=== PATIENT | female | born 1940 | race African-American/Black ===

== ENCOUNTER 2016-06-20 11:18 | Inpatient (IN) | payer MEDICARE, BC ==
[2016-06-18 10:23] LABS: HEMATOCRIT 38.6 % (36.0-48.0); HEMOGLOBIN 12.1 g/dL (12.0-16.0)
[2016-06-18 10:35] LABS: CALCIUM, SERUM 8.8 MG/DL (8.5-10.4); CHLORIDE, SERUM 101 MMOL/L (96-112); CO2 (CARBON DIOXIDE) 32 MMOL/L (24-34); CREATININE 0.76 MG/DL (0.55-1.02); GFR AFRICAN AMERICAN 88 ML/MIN (>=60); GFR NON AFRICAN AMERICAN 76 ML/MIN (>=60); GLUCOSE, SERUM 88 MG/DL (60-99); POTASSIUM, SERUM 3.5 MMOL/L (3.5-5.3); SODIUM, SERUM 141 MMOL/L (135-148)
[2016-06-18 10:36] LABS: BUN (BLOOD UREA NITROGEN) 15 MG/DL (6-23)
--- NOTE | ~2016-06-20 | CN ---
Consultation Report [facility] [place] [address] [place]. [address] NAME: IRA VERA : 39 STATUS : ADM IN PAT#: [id number] AGE: 75 ADM/REG DATE : 06/20/16 MR#: [id number] REPORT SERV DATE: 06/22/16 DICTATED BY: WHITNEY SINGH DATE: 06/22/16 REPORT STATUS : Draft TRANSCRIBED BY: MODL DATE: 06/22/16 NEPHROLOGY CONSULTATION DATE OF CONSULTATION: 06/22/2016 REASON FOR CONSULTATION: Acute kidney injury. HISTORY OF PRESENT ILLNESS: Mrs. Vera is a pleasant 75-year-old female with past medical history of chronic degenerative disk disease with multiple back surgeries, hypertension, obstructive sleep apnea, and GERD, who presented as an elective admission for L2-L4 lumbar fusion with facetectomy. She underwent surgery on 06/20. She had preoperative labs done on the , which showed a BUN and creatinine 15 and 0.76. Next set of lab data available was 06/21 with BUN and creatinine of 34 and 3.84 with potassium of 3.1. Her urinalysis shows specific gravity 1.025 with 182 red blood cells, four white blood cells, and 100 mg/dL protein. Reviewing intraoperative record, she had a systolic blood pressure ranging 90 to 110 throughout surgery. She has had episodes of hypotension with blood pressure 87/50 on 06/20 and 88/34 on 06/21. She denies any prior history of renal disease, has not received any obvious nephrotoxins, but is noted to be on an JN inhibitor and diuretic therapy, which has been stopped. PAST MEDICAL HISTORY: 1. Peripheral neuropathy. 2. Hypertension. 3. Obstructive sleep apnea, not requiring CPAP. 4. Degenerative disk disease with multiple back surgeries. 5. GERD. PAST SURGICAL HISTORY: 1. Heart catheterization, 40 years ago. 2. Tonsillectomy and adenoidectomy as a child. 3. Multiple lower back surgeries, most recent with lumbar laminectomy in 2016. 4. Hysterectomy. 5. Foot surgeries, not otherwise specified. 6. Left ankle fusion. 7. Colonoscopy. 8. Laser surgery to the right eye. 9. Right patella removal. 10.Cholecystectomy. 11.Upper lid blepharoplasty, 2011. 12.Left wrist/hand ganglion cyst surgery x5. ALLERGIES: SPINACH AND SHELLFISH. SOCIAL HISTORY: She is , has three grown children, and a supportive . One son Consultation Report [address] [place]. [address] NAME: IRA VERA : 39 STATUS : ADM IN PAT#: [id number] AGE: 75 ADM/REG DATE : 06/20/16 MR#: [id number] REPORT SERV DATE: 06/22/16 DICTATED BY: WHITNEY SINGH DATE: 06/22/16 REPORT STATUS : Draft TRANSCRIBED BY: RONAK DATE: 06/22/16 has . No smoking, alcohol, or illicit drug use. FAMILY HISTORY: Significant for coronary artery disease and cancer. Her mother had hypertension and is from renal failure, and her father when she was [age] years old. HOME MEDICATIONS: 1. Amlodipine 10 daily. 2. Aspirin 81 daily. 3. Alphagan eyedrops, one drop twice a day in both eyes. 4. Celexa 20 daily. 5. Colace 100 p.r.n. constipation. 6. Ferrous sulfate 325 q.a.m. 7. Lasix 10 daily p.r.n. for swelling. 8. Neurontin 800 three times a day. 9. Hydrochlorothiazide 25 mg in the morning. 10.Hydrocodone 5/325 q.4 hours p.r.n. pain. 11.Lisinopril 10 daily. 12.Prilosec 40 daily. 13.Potassium chloride 10 mEq daily. 14.Zanaflex 4 mg t.i.d. REVIEW OF SYSTEMS: All systems reviewed and negative excluding those mentioned and highlighted in the history of present illness. PHYSICAL EXAMINATION: VITAL SIGNS: O2 saturation 96%, blood pressure 137/68, temperature 98.4, pulse 87, respiratory rate 22, oxygen saturation 98% on 2 L. GENERAL: This is a pleasant female, looks her stated age, resting comfortably, nontoxic, in no acute distress. HEENT: Normocephalic, atraumatic. Oropharynx clear. No exudate. NECK: Supple. No JVD or thyromegaly. No carotid bruits. Trachea midline. No stridor. CARDIOVASCULAR: Regular rate and rhythm. S1, S2 without rubs or gallops. Point of maximal impulse nondisplaced. RESPIRATORY: Clear to auscultation bilaterally to bases. No wheeze, rhonchi, tachypnea, or accessory muscles in use. GI: Abdomen is soft, nontender, nondistended. No hepatosplenomegaly appreciated. Bowel sounds positive over four quadrants. EXTREMITIES: No cyanosis, clubbing or edema. Distal pulses 2+ symmetrically intact. NEUROLOGIC: Cranial nerves 2 through 12 grossly intact. Motor sensory examinations within normal limits. LYMPH: No supraclavicular, cervical, inguinal, or axillary adenopathy. SKIN: No rash or breakdown. Normal turgor. Consultation Report [place] [id number] [facility] [place]. [address] NAME: IRA VERA : 39 STATUS : ADM IN [facility]#: [id number] AGE: 75 ADM/REG DATE : 06/20/16 MR#: [id number] REPORT SERV DATE: 06/22/16 DICTATED BY: WHITNEY SINGH DATE: 06/22/16 REPORT STATUS : Draft TRANSCRIBED BY: RONAK DATE: 06/22/16 LABS AND DIAGNOSTIC DATA: BNP 9.2. Sodium 131, potassium 3.5, chloride 95, bicarb 23, BUN 41, creatinine 4.08, glucose 119, calcium 7.4, magnesium 1.7, phosphorus 4.9. WBC 11.7, hemoglobin 9.1, hematocrit 28.4, platelets 196. ASSESSMENT: 1. Acute kidney injury post back surgery (L2-L4 lumbar fusion with facetectomy). Serum creatinine preceding surgery was 0.76 with brisk rise to 4.08 postoperatively on day #2. I suspect this is hypoperfusion mediated injury with evidence of relative hypotension in the setting of JN inhibitor and diuretic therapy causing acute tubular necrosis. She appears to be nonoliguric at this point. 2. History of hypertension. PLAN: 1. Check renal ultrasound and urinary electrolytes. 2. Bolus normal saline 500 mL and increase fluid rate for now. She presently has no signs of volume overload and I suspect it is prerenal. 3. Serial labs and hopefully we can avoid hemodialysis. There is no acute indication at this point. and patient were updated in detail. Thank you for this consultation. LETICIA/RONAK Whitney Singh M.D. / [id number] CC: Jayne Wilhelm II, M.D.
--- NOTE | ~2016-06-20 | DS ---
Discharge Summary [facility] [address] [place]. [address] NAME: IRA JIMENEZ : 39 STATUS : DIS IN PAT#: [id number] AGE: 75 ADM/REG DATE : 06/20/16 MR#: [id number] REPORT SERV DATE: 07/06/16 DICTATED BY: SUMI STOKES II DATE: 07/05/16 REPORT STATUS : Draft TRANSCRIBED BY: RONAK DATE: 07/05/16 Data Collection from hospitalization DISCHARGE DIAGNOSES: 1. Right lower extremity radiculopathy with remote and recent history of L4-S1 surgery. 2. Adjacent segment degeneration with now symptomatic stenosis at L2-L3 and L3-L4 above previous fusion. 3. Hypertension. 4. Anemia. 5. Cataract. 6. Depression. 7. Glaucoma. 8. Osteoarthritis. 9. Varicose veins of the lower extremities. 10.Obstructive sleep apnea. CONSULTATIONS: 1. Saige eZlaya NP. 2. Whitney Brown M.D. PROCEDURES PERFORMED: 1. L2-L3, L3-L4 facetectomy and laminectomy; posterolateral arthrodesis of L2-L3, L3-L4; posterior instrumentation of L2-L3, L3-L4 with left hardware removal of L4-L5; use of local autograft, allograft substitute, and bone morphogenic protein; use of microscope and stereotactic spinal imaging on 06/20/2016. 2. Renal ultrasound on 06/22/2016. PATHOLOGY: Lumbar spine removal and repair - orthopedic hardware (gross assessment), fragmented bone, cartilage and soft tissue. No evidence was seen of an infectious or neoplastic process. MEDICATIONS: Norvasc 10 mg daily, Alphagan one drop twice a day, Celexa 20 mg daily, docusate sodium 100 mg as needed, ferrous sulfate 325 mg every morning, Neurontin 800 mg three times a day, Prilosec 40 mg daily, DuoNeb 3 mL via inhaler every four hours while awake, Mylanta 30 mL as needed, Dulcolax 15 mg as needed, Valium 2 mg every four hours as needed, Eagan 10/325 one to two tablets every four hours as needed, milk of magnesia 30 mL twice a day as needed, Zanaflex 4 mg three times a day as needed, hydrochlorothiazide 25 mg every morning, K-Tab 10 mEq as needed, Zestril 10 mg daily, and Lasix 10 mg daily as needed. CONDITION AT DISCHARGE: Stable. DISPOSITION: The patient was discharged to [facility] on a regular diet with activities as instructed. HOSPITAL COURSE: This is a 75-year-old female who had complained of lumbar spine-related symptoms. The symptoms were located in the right lower back with radiation into the right abdomen. She reported having a pain level of 10 on a scale of 0-10. She has right lower extremity radiculopathy with remote and recent history of L4-S1 surgery. She has adjacent Discharge Summary [place] [address] [place]. [address] NAME: IRA JIMENEZ : 39 STATUS : DIS IN PAT#: [id number] AGE: 75 ADM/REG DATE : 06/20/16 MR#: [id number] REPORT SERV DATE: 07/06/16 DICTATED BY: SUMI STOKES II DATE: 07/05/16 REPORT STATUS : Draft TRANSCRIBED BY: RONAK DATE: 07/05/16 segment degeneration with now symptomatic stenosis at L2-3 and L3-4 above the previous fusion. Treatment options were discussed and it was elected to proceed with surgical intervention. She was admitted to the hospital at this time for further evaluation and treatment. Upon admission, she was taken to the operating room where she underwent the above-mentioned procedure. She tolerated this well, and there were no complications. On postop day #1, she was evaluated by Physical Therapy. She was resting well. She was seen by Saige Zelaya regarding renal failure. The patient has a previous history of type 2 diabetes, but she said she is not a diabetic even though it is in her history. Creatinine level was found to be 3.84. She was felt to have acute kidney injury on postop day #1. Her previous creatinine on 06/18/2016 was 0.76. She is on several medications for hypertension. Lisinopril, Lasix, hydrochlorothiazide, and KCl were discontinued. Normal saline was added for hydration. She was encouraged to also orally hydrate herself. Her blood pressure was controlled at the present time. She was going to remain on Norvasc daily. She does have obstructive sleep apnea, but does not use CPAP. The patient said she could not tolerate wearing a mass. She would be monitored on continuous O2 and we would titrate her O2 to keep saturations 92% or greater. She was going to remain on daily Prilosec as well as her daily dose of gabapentin. On 06/22/2016, she was seen by Dr. Whitney Brown regarding acute kidney injury. On review of her intraoperative records, she had a systolic blood pressure ranging 90 to 110 throughout her surgery. She did have episodes of hypotension with blood pressure 87/50 on 06/20/2016 and 88/34 on 06/21/2016. She denies any prior history of renal disease. She has not received any obvious nephrotoxins, but she is noted to be on JN inhibitor and diuretic therapy which had been stopped. Her serum creatinine prior to surgery was 0.76 with a brisk rise to 4.08 on postop day #2. It was suspected that this was hypoperfusion-mediated injury with evidence of relative hypotension in the setting of JN inhibitor and diuretic therapy causing acute tubular necrosis. She appeared to be nonoliguric at this point. Renal ultrasound would be checked as well as urinary electrolytes. Bolus of normal saline would be given and we increased the fluid rate for now. She presently has no signs of volume overload and it was suspected that this was prerenal. We were hopeful that we could avoid hemodialysis. There was no indication for this at this point. On 06/23/2016, she was more alert. Her pain was well controlled. Castillo catheter was in place. She did ambulate with assistance. The next day, she was able to void. LUKE drain remained in place. Her pain was controlled. Blood pressure was stable. Discharge planning was performed. On 06/25/2016, she continued to do well. Her leg pain had decreased. Discharge instructions were given. Due to her improved and stable condition, she was discharged to [facility] with the above-stated instructions. Information collected by: Anna Baxter I submit the above information as my discharge summary. TG/MODL Discharge Summary [facility] [address] [place]. [address] NAME: TONYKAILAIRA ANN RECIO : 39 STATUS : DIS IN [facility]#: [id number] AGE: 75 ADM/REG DATE : 06/20/16 MR#: [id number] REPORT SERV DATE: 07/06/16 DICTATED BY: SUMI STOKES II DATE: 07/05/16 REPORT STATUS : Draft TRANSCRIBED BY: RONAK DATE: 07/05/16 Suim Stokes II, M.D. / [id number] CC: Jayne Wilhelm II, M.D. Lindsay C Crawford, M.D.
--- NOTE | ~2016-06-20 | OP ---
Record Of Operation [facility] [address] [place]. [address] NAME: IRA JIMENEZ : 39 STATUS : ADM IN PAT#: [id number] AGE: 75 ADM/REG DATE : 06/20/16 MR#: [id number] REPORT SERV DATE: 06/25/16 DICTATED BY: SUMI STOKES II DATE: 06/23/16 REPORT STATUS : Draft TRANSCRIBED BY: MODL DATE: 06/23/16 DATE OF PROCEDURE: 06/20/2016 PREOPERATIVE DIAGNOSES: Right lower extremity radiculopathy with remote and recent history of L4 to S1 surgery. Adjacent segment degeneration, with now symptomatic stenosis, L2-3, L3 4 above her previous fusion. POSTOPERATIVE DIAGNOSES: Right lower extremity radiculopathy with remote and recent history of L4 to S1 surgery. Adjacent segment degeneration, with now symptomatic stenosis, L2-3, L3 4 above her previous fusion. PROCEDURE: 1. L2-3, L3-4 facetectomies and laminectomies. 2. Posterolateral arthrodesis, L2-3, L3-4. 3. Posterior instrumentation, L2-3, L3-4, with left hardware removal, L4-5. 4. Use of local autograft, allograft substitute, and bone morphogenic protein. 5. Use of the microscope and stereotactic spinal imaging. SURGEON: Sumi Stokes M.D. FLUIDS: 1200 mL LR. ESTIMATED BLOOD LOSS: 100 mL. DRAIN: One drain. COMPLICATIONS: None. PREOPERATIVE HISTORY: This is a friendly 75-year-old female, who was doing well following her most recent surgery. It decrease her left lower extremity radiculopathy greatly. Unfortunately, several months later she is now having severe complaints of pain radiating in the right buttock and leg. Imaging does show stenosis at L2-3 and L3-4. Which I unfortunately felt was likely her culprit now. She appeared to have recovered well from the surgery, but unfortunately these other levels, I did not anticipate bothering her especially not in this rapid of a fashion. I discussed with them that this was obviously suboptimal in terms of having to have an another surgery so quickly. I apologize that she was having to be in this much pain. Because of the severe pain she wished to have something done, which of course I totally understood and wanted to help her as quickly as possible and this as effectively as possible. I did not see anything that looked remarkable at the previously operated on levels. I discussed with her and her family the risks and benefits of surgery and she was eager to proceed. DESCRIPTION OF PROCEDURE: After informed consent was obtained, the patient was brought to the operating room at her request, and general anesthesia was achieved. She was placed in the prone position and the back was prepped and draped in a sterile fashion. At this point, we performed bilateral Andrew style approaches. The right side was then initially performed Record Of Operation [facility] [address] [facility] [place]. [address] NAME: IRA JIMENEZ : 39 STATUS : ADM IN PAT#: [id number] AGE: 75 ADM/REG DATE : 06/20/16 MR#: [id number] REPORT SERV DATE: 06/25/16 DICTATED BY: SUMI STOKES II DATE: 06/23/16 REPORT STATUS : Draft TRANSCRIBED BY: MODShubham DATE: 06/23/16 and the Smith retractor was placed. The previous hardware was identified and the andrey was removed, so as to allow use of a longer andrey later in the case. At this point, we then performed a facetectomy at L3-4. The significant facet arthrosis was addressed with a high- speed bur and the Kerrison rongeurs. The spinal laminar junction was now taken down. The significant stenosis was now alleviated with removal of ligamentum flavum and the facet on the right. At this point, the L3 and L4 nerve roots were adequately decompressed after the complete facetectomy. Next, we worked up to the L2-3 region where upon the facet was removed and the ligamentum flavum also removed. The L2 and L3 nerve roots were now found to be well decompressed. Next, the area was irrigated followed by decortication of the transverse processes of L2, L3, and L4. Local autograft, allograft substitute, and bone morphogenic protein were placed along these decorticated surfaces. Next, the pedicle screws were applied into L2 and L3 on the right. We then connected the new andrey to the previous construct. Final tightening was performed. The deep drain was placed on the right side. On the left side we then performed an incision to allow placement of the minimally invasive screws into L2 and L3 on the left. We then removed the L4 screw to allow easier passage of the andrey. We tried to place the andrey with all three screws on the left (L4, L5, and S1). This simply was too crowded. We then removed this screw, this allowed much easier passage and a repeat CT scan confirmed acceptable placement of the implants. The final tightening was performed. Standard closure was performed bilaterally followed by standard dressing application. The patient was then extubated and transferred to PACU in stable condition. MICAHEL/RONAK Sumi Stokes II, M.D. / [id number] CC: Jayne Wilhelm II, M.D.
--- NOTE | ~2016-06-20 | CN ---
Consultation Report [address] [place]. [address] NAME: IRA JIMENEZ : 38 STATUS : ADM IN PAT#: [id number] AGE: 75 ADM/REG DATE : 06/20/16 MR#: [id number] REPORT SERV DATE: 06/22/16 DICTATED BY: CARLOSSAIGE LUPE DATE: 06/22/16 REPORT STATUS : Draft TRANSCRIBED BY: MODL DATE: 06/22/16 CONSULTATION DATE OF CONSULTATION: 06/21/2016 REASON FOR CONSULTATION: Consulted for renal failure. IDENTIFYING DATA: 1. PCP is Kaye Miranda MD. 2. Pulmonology, Roverto Boss M.D. 3. Orthopedist, Matthew Stokes II, MD. 4. Previous surgeon Dr. Hardy. HISTORY OF PRESENT ILLNESS: This is a pleasant 75-year-old female with a history of numerous back surgeries, hypertension, obstructive sleep apnea for which she uses no CPAP, GERD, previous diabetic type 2, but she states she is not diabetic even though it is in her history. We have been consulted to help manage the patient for renal failure postoperatively. She was admitted for L2 to L4 degenerative disk disease with low back pain and has a history of lumbar fusion in 2016. She is presently postoperative day one. On 06/20/2016, she was status post posterior L2 to L4 lumbar fusion and facetectomy. The patient's history was obtained through interview with the patient, coupled with review of process consultant notes and old medical records. PAST MEDICAL HISTORY: 1. Neuropathy in the feet. 2. Wears glasses. 3. Upper and lower dentures. 4. Hypertension. 5. Pneumonia. 6. Obstructive sleep apnea for which she uses no CPAP. 7. Arthritis. 8. Degenerative disk disease. 9. Lower back pain. 10.GERD. 11.Polyps. 12.Cataracts. 13.History of diabetes type 2, although the patient states she is not diabetic and her blood sugars were elevated with previous surgeries. 14.Seasonal allergies. 15.Anemia. 16.Anxiety. HOME MEDICATIONS: Consultation Report [address] [place]. [address] NAME: IRA JIMENEZ : 38 STATUS : ADM IN PAT#: [id number] AGE: 75 ADM/REG DATE : 06/20/16 MR#: [id number] REPORT SERV DATE: 06/22/16 DICTATED BY: SAIGE GONZALEZ DATE: 06/22/16 REPORT STATUS : Draft TRANSCRIBED BY: RONAK DATE: 06/22/16 1. Amlodipine 10 mg p.o. daily. 2. Aspirin enteric coated 81 mg p.o. every morning. 3. Alphagan ophthalmic solution one drop twice a day in both eyes. 4. Celexa 20 mg p.o. daily. 5. Docusate sodium 100 mg p.o. p.r.n. constipation. 6. Ferrous sulfate 325 mg p.o. every morning. 7. Lasix 10 mg p.o. daily p.r.n. for feet swelling. 8. Neurontin 800 mg p.o. three times daily. 9. Hydrochlorothiazide 25 mg p.o. every morning. 10.Dixmont 5/325 one to two tablets p.o. every four hours p.r.n. pain. 11.Lisinopril 10 mg p.o. daily. 12.Prilosec 40 mg p.o. daily. 13.Potassium chloride 10 mEq p.o. in the a.m. p.r.n. 14.Zanaflex 4 mg p.o. three times a day p.r.n. ALLERGIES: TO SPINACH AND SHELLFISH. SOCIAL HISTORY: The patient is for approximately 39 years, has three grown children, and one son who is now . She does not smoke, drink, or use illicit drugs. She lives in a single-level home. FAMILY HISTORY: Positive for coronary artery disease and cancer. Her mother had hypertension and is having renal failure. Her father was when she was approximately 3 years old. SURGICAL HISTORY: 1. CE-IOL bilaterally in 2002. 2. Heart catheterization greater than 40 years ago. 3. T and A as a child. 4. Stress test in 2014. 5. Lower back surgeries, frequent with the last lumbar laminectomy done in 2015. 6. Hysterectomy. 7. Foot surgery x4 with the last one done in 2005. 8. She had a left ankle fusion in 2002. 9. Colonoscopy in 2012. 10.Laser to the right eye in 04/2013. 11.Right patella removal, the surgery was in 1994. 12.Cholecystectomy in 2010. 13.Upper lid blepharoplasty in 2011. 14.Left wrist and hand ganglion cyst surgery x5. REVIEW OF SYSTEMS: Negative other than what is in HPI. The patient is alert and oriented. Has no shortness of breath. Displays no agitation or confusion. No nausea or vomiting. No diarrhea. No abdominal pain. No chest pain. No fever. Consultation Report [place] [id number] [place]. [address] NAME: IRA JIMENEZ : 38 STATUS : ADM IN [facility]#: [id number] AGE: 75 ADM/REG DATE : 06/20/16 MR#: [id number] REPORT SERV DATE: 06/22/16 DICTATED BY: SAIGE GONZALEZ DATE: 06/22/16 REPORT STATUS : Draft TRANSCRIBED BY: RONAK DATE: 06/22/16 PHYSICAL EXAMINATION: VITAL SIGNS: From today, blood pressure 117/51, heart rate 102, respiratory rate 16, O2 saturation 96% on 2 L nasal cannula. GENERAL: This is a very pleasant 75-year-old female, resting in bed. No acute distress. NEURO: Head is atraumatic, normocephalic. She is alert and oriented x3. Her cranial nerves II to XII are intact. Mood is pleasant and appropriate. NECK: Supple. Trachea is midline. No JVD noted. No obvious thyromegaly or lymphadenopathy. EENT: Her sclerae are nonicteric. Pupils are equal, reactive to light. Her nares are patent. Her mucous membranes are moist. Her tongue is midline without deviation. Her soft palate rises equally on phonation. CHEST: No pain with palpation. LUNGS: Clear to auscultation. She is diminished in the bases. She has no increased work of breathing with conversation. She is encouraged to use her incentive spirometer. CARDIOVASCULAR: S1, S2. No obvious murmurs, rubs, or gallops. Rhythm is regular. Displays sinus tachycardia with a rate of 102. ABDOMEN: Soft and nontender. Bowel sounds active. No palpable organomegaly. Last bowel movement noted on 06/20/2016. EXTREMITIES: Normal distal pulses. No calf tenderness. No edema. She has SCDs in place for DVT prophylaxis. SKIN: Warm and dry. No unusual rashes or lesions. Normal color and turgor. PSYCH: Pleasant, cooperative, appropriate mood and affect. Postsurgery, surgical wound site dressing clean, dry, and intact. LABORATORY DATA: Sodium 132, potassium 3.1, chloride 94, BUN 34, creatinine 3.84. GFR of 12, glucose 132, calcium 7.7, hemoglobin 12.1, hematocrit 38.6. The patient had chest x-ray on 04/23/2016 which showed no evidence of acute cardiopulmonary disease. The patient had an EKG done on 06/18/2016 that showed a normal sinus rhythm. States it cannot rule out an inferior infarct where age is undetermined. ASSESSMENT AND PLAN: 1. Acute kidney injury, postoperative day one. The patient was noted on present labs to have a creatinine of 3.84. Her previous creatinine on 06/18/2016 was 0.76. She is on several medications for hypertension. We will have to discontinue her lisinopril, hydrochlorothiazide, KCl, and add normal saline at 125 an hour to hydrate her. We have encouraged her also to take p.o. to hydrate herself. We will have a renal consult to see her in the a.m. 2. Hypertension. Aware. Her blood pressure is controlled at present time. She will remain on her Norvasc for daily use. 3. Obstructive sleep apnea where the patient uses no CPAP. Aware. The patient states that she cannot tolerate being on mask. We will monitor continuous O2 saturation and titrate her O2 to keep sats 92% or greater. Consultation Report [place] [id number] [facility] [place]. [address] NAME: IRA JIMENEZ : 38 STATUS : ADM IN [facility]#: [id number] AGE: 75 ADM/REG DATE : 06/20/16 MR#: [id number] REPORT SERV DATE: 06/22/16 DICTATED BY: SAIGE GONZALEZ DATE: 06/22/16 REPORT STATUS : Draft TRANSCRIBED BY: MODL DATE: 06/22/16 4. GERD. Aware. The patient remains on her daily dose of Prilosec. 5. Neuropathy. Aware. The patient remains on her daily dose of gabapentin. Labs are CMP, magnesium, phosphorus, CBC, renal profile panel, BNP, hemoglobin A1c, a portable chest x-ray, and urinalysis as well as a renal consult in the morning, and I have discussed the possibility that the patient will get a Nephrology consult in the morning with her and her and she is agreeable to that. The hospitalist group would like to thank you for this consultation and please let us know if we can be of any further assistance. BRITTANY Saige Gonzalez NP / [phone] CC: Jayne Wilhelm II, M.D.
[~2016-06-20 11:18] MED LIST: ALPHAGAN P0.1 % OPH; AMIT25 PO; ATEN50 PO; CELEXA20 PO; D.O.S.100 MG PO; FERROUS SULF325 M1 PO; FISH-EPA1000 MG PO; FLEX PO; FLEXERIL5 MG PO; HALF81 PO; HYDROCHLOROT25 MG PO; JANUVIA100 MG PO; K-TABS10 MEQ PO; L20 PO; LOTE40 PO; NEUR400 PO; NORCO1 TA1 PO; NORCO1 TA2 PO; NORV10 PO; NORV5 PO; Neurontin; OXAPROZIN600 MG PO; PRILOSEC40 MG PO; RELA5 PO; SANCTURA20 MG PO; VISCOUS LIDOCAINE PO/LIQ; ZANAFLEX 4 MG TA4 MG PO; ZESTRIL10 MG PO
[2016-06-21 20:38] LABS: A/G RATIO 0.9 (0.7-1.9); ALKALINE PHOSPHATASE 69 U/L (45-117); CHLORIDE, SERUM 94 MMOL/L (96-112); GLOBULIN 3.5 G/DL (2.5-4.1); POTASSIUM, SERUM 3.1 MMOL/L (3.5-5.3); SGOT(AST) 67 U/L (5-40); SGPT(ALT) 12 U/L (5-65); TOTAL BILIRUBIN 0.2 MG/DL (0-1.2); TOTAL PROTEIN 6.5 G/DL (6.0-8.5)
[2016-06-21 20:39] LABS: BUN (BLOOD UREA NITROGEN) 34 MG/DL (6-23); CALCIUM, SERUM 7.7 MG/DL (8.5-10.4); CO2 (CARBON DIOXIDE) 22 MMOL/L (24-34); CREATININE 3.84 MG/DL (0.55-1.02); GFR AFRICAN AMERICAN 12 ML/MIN (>=60); GFR NON AFRICAN AMERICAN 11 ML/MIN (>=60); GLUCOSE, SERUM 132 MG/DL (60-99); SODIUM, SERUM 132 MMOL/L (135-148)
[2016-06-22 04:01] LABS: BASOPHILS 0 %; EOSINOPHILS 0 %; IMMATURE GRANULOCYTES 0.2 %; IMMATURE GRANULOCYTES ABSOLUTE 0.02 10/3/uL (0.0-0.11); LYMPHOCYTES 6.7 %; LYMPHOCYTES ABSOLUTE 0.78 10/3/uL (0.67-4.30); MEAN CORPUSCULAR HEMOGLOB 26.7 pg (26.0-34.0); MEAN CORPUSCULAR VOLUME 83.3 fL (80-100); MEAN PLATELET VOLUME 8.9 fL (9.2-13.0); MONOCYTES 5.6 %; MONOCYTES ABSOLUTE 0.65 10/3/uL (0.21-1.20); NEUTROPHILS 87.5 %; NEUTROPHILS ABSOLUTE 10.22 10/3/uL (2.02-8.40); PLATELET COUNT 196 10/3/uL (150-400); RBC DISTRIBUTION WIDTH 16.7 % (12.0-16.0); RED CELL COUNT 3.41 10/6/uL (4.0-5.6)
[2016-06-22 04:11] LABS: HEMATOCRIT 28.4 % (36.0-48.0); HEMOGLOBIN 9.1 g/dL (12.0-16.0); MANUAL DIFF NO %; WHITE BLOOD CELLS 11.7 10/3/uL (4.5-10.5)
[2016-06-22 04:16] LABS: A/G RATIO 0.8 (0.7-1.9); ALBUMIN 2.8 G/DL (3.5-5.0); ALKALINE PHOSPHATASE 66 U/L (45-117); CALCIUM, SERUM 7.4 MG/DL (8.5-10.4); CHLORIDE, SERUM 95 MMOL/L (96-112); CO2 (CARBON DIOXIDE) 23 MMOL/L (24-34); CREATININE 4.08 MG/DL (0.55-1.02); GFR AFRICAN AMERICAN 12 ML/MIN (>=60); GFR NON AFRICAN AMERICAN 10 ML/MIN (>=60); GLOBULIN 3.6 G/DL (2.5-4.1); GLUCOSE, SERUM 119 MG/DL (60-99); PHOSPHORUS, SERUM 4.9 MG/DL (2.5-4.5); POTASSIUM, SERUM 3.5 MMOL/L (3.5-5.3); SGOT(AST) 68 U/L (5-40); SGPT(ALT) 8 U/L (5-65); SODIUM, SERUM 131 MMOL/L (135-148); TOTAL BILIRUBIN 0.2 MG/DL (0-1.2); TOTAL PROTEIN 6.4 G/DL (6.0-8.5)
[2016-06-22 04:23] LABS: B NATRIURETIC PEPTIDE (BNP) 9.2 PG/ML (< 100.0)
[2016-06-22 04:25] LABS: BUN (BLOOD UREA NITROGEN) 41 MG/DL (6-23)
[2016-06-22 05:53] LABS: ASCORBIC ACID (UR NOT ORDER) NEG (NEG); BILIRUBIN, URINE NEGATIVE (NEG); KETONE, URINE TRACE MG/DL (NEG); LEUKOCYTE ESTERASE(NOT OR MOD (NEG); WBC (NOT ORDERED) (RFLEX) 4 (0-5)
[2016-06-22 10:46] LABS: GLYCOHEMOGLOBIN (HbA1c) 5.9 % (4.7-6.1)
[2016-06-22 15:27] LABS: BUN (BLOOD UREA NITROGEN) 43 MG/DL (6-23); CALCIUM, SERUM 7.3 MG/DL (8.5-10.4); CHLORIDE, SERUM 102 MMOL/L (96-112); CO2 (CARBON DIOXIDE) 27 MMOL/L (24-34); GFR AFRICAN AMERICAN 22 ML/MIN (>=60); GFR NON AFRICAN AMERICAN 19 ML/MIN (>=60); GLUCOSE, SERUM 107 MG/DL (60-99); POTASSIUM, SERUM 3.8 MMOL/L (3.5-5.3); SODIUM, SERUM 137 MMOL/L (135-148)
[2016-06-22 15:28] LABS: CREATININE 2.36 MG/DL (0.55-1.02)
[2016-06-23 07:19] LABS: BASOPHILS 0 %; EOSINOPHILS 1.5 %; EOSINOPHILS ABSOLUTE 0.09 10/3/uL (0.0-0.53); HEMOGLOBIN 8.1 g/dL (12.0-16.0); IMMATURE GRANULOCYTES 0.3 %; IMMATURE GRANULOCYTES ABSOLUTE 0.02 10/3/uL (0.0-0.11); LYMPHOCYTES ABSOLUTE 1.11 10/3/uL (0.67-4.30); MEAN CORPUS HGB CONC 32.5 g/dL (32.0-36.0); MEAN CORPUSCULAR HEMOGLOB 26.7 pg (26.0-34.0); MEAN CORPUSCULAR VOLUME 82.2 fL (80-100); MEAN PLATELET VOLUME 8.7 fL (9.2-13.0); MONOCYTES 9.2 %; MONOCYTES ABSOLUTE 0.54 10/3/uL (0.21-1.20); NEUTROPHILS ABSOLUTE 4.09 10/3/uL (2.02-8.40); PLATELET COUNT 184 10/3/uL (150-400); RBC DISTRIBUTION WIDTH 16.7 % (12.0-16.0); RED CELL COUNT 3.03 10/6/uL (4.0-5.6)
[2016-06-23 07:20] LABS: HEMATOCRIT 24.9 % (36.0-48.0); MANUAL DIFF NO %; WHITE BLOOD CELLS 5.9 10/3/uL (4.5-10.5)
[2016-06-23 07:22] LABS: INTERNATIONAL NORMAL RATI 1.1 UNITS (-)
[2016-06-23 07:42] LABS: ALBUMIN 2.3 G/DL (3.5-5.0); CALCIUM, SERUM 7.7 MG/DL (8.5-10.4); CHLORIDE, SERUM 113 MMOL/L (96-112); CO2 (CARBON DIOXIDE) 26 MMOL/L (24-34); GLUCOSE, SERUM 104 MG/DL (60-99); POTASSIUM, SERUM 3.8 MMOL/L (3.5-5.3)
[2016-06-23 07:43] LABS: BUN (BLOOD UREA NITROGEN) 26 MG/DL (6-23); CREATININE 0.93 MG/DL (0.55-1.02); GFR AFRICAN AMERICAN 69 ML/MIN (>=60); GFR NON AFRICAN AMERICAN 60 ML/MIN (>=60); PHOSPHORUS, SERUM 1.4 MG/DL (2.5-4.5); SODIUM, SERUM 146 MMOL/L (135-148)
== END 2016-06-25 16:52 | DRG 459 ==
LOC: SDC/OF 11:18 → PACU 18:36 → 3SO 20:29 → 2SO 06-22 04:25
PROVIDERS: Internal Medicine Nephrology; Nurse Practitioner Family; Orthopaedic Surgery
PROC: 0SG10A1 (ICD-10-PCS; principal; 2016-06-20 13:15)
PROC: 0SP004Z Removal of Internal Fixation Device from Lumbar Vertebral Joint, Open Approach (ICD-10-PCS; 2016-06-20 13:15)
DX: M51.36 Other intervertebral disc degeneration, lumbar region (principal); N17.0 Acute kidney failure with tubular necrosis; I10 Essential (primary) hypertension; G47.33 Obstructive sleep apnea (adult) (pediatric); K21.9 Gastro-esophageal reflux disease without esophagitis; G62.9 Polyneuropathy, unspecified; Z99.81 Dependence on supplemental oxygen; Z98.890 Other specified postprocedural states; Z91.013 Allergy to seafood; Z91.018 Allergy to other foods; Z82.49 Family history of ischemic heart disease and other diseases of the circulatory system; Z80.9 Family history of malignant neoplasm, unspecified
CPT/HCPCS: 71010; 76775; 80048; 80053; 80069; 81001; 82570; 82962; 83036; 83735; 83880; 84300; 85014; 85018; 85025; 85610; 87086; 87641; 88300; 88304; 88311; 93005; 94640; 97116-GP; 97161-GP; A9270-GY; C1713; G8978-CL-GP; G8979-CI-GP; J0690; J1170; J1940; J2405; J2710; J3010

== ENCOUNTER 2016-08-12 22:01 | Emergency (ER) | payer MEDICARE, BC ==
[2016-08-12 18:43] LABS: BASOPHILS 0.2 %; BASOPHILS ABSOLUTE 0.01 10/3/uL (0.0-0.16); EOSINOPHILS 4.3 %; EOSINOPHILS ABSOLUTE 0.23 10/3/uL (0.0-0.53); ER CBC TAT 0 Hrs 16 Mins; IMMATURE GRANULOCYTES 0.2 %; IMMATURE GRANULOCYTES ABSOLUTE 0.01 10/3/uL (0.0-0.11); LYMPHOCYTES 34.7 %; LYMPHOCYTES ABSOLUTE 1.85 10/3/uL (0.67-4.30); MEAN CORPUS HGB CONC 31.3 g/dL (32.0-36.0); MEAN CORPUSCULAR HEMOGLOB 26.2 pg (26.0-34.0); MEAN CORPUSCULAR VOLUME 83.7 fL (80-100); MEAN PLATELET VOLUME 8.8 fL (9.2-13.0); MONOCYTES 4.5 %; MONOCYTES ABSOLUTE 0.24 10/3/uL (0.21-1.20); NEUTROPHILS 56.1 %; NEUTROPHILS ABSOLUTE 2.99 10/3/uL (2.02-8.40); RBC DISTRIBUTION WIDTH 15.2 % (12.0-16.0); WHITE BLOOD CELLS 5.3 10/3/uL (4.5-10.5)
[2016-08-12 18:45] LABS: HEMATOCRIT 31.3 % (36.0-48.0); HEMOGLOBIN 9.8 g/dL (12.0-16.0); MANUAL DIFF NO %; PLATELET COUNT 370 10/3/uL (150-400); RED CELL COUNT 3.74 10/6/uL (4.0-5.6)
[2016-08-12 18:46] LABS: ASCORBIC ACID (UR NOT ORDER) 40 (NEG); BILIRUBIN, URINE NEGATIVE (NEG); ER URINALYSIS TAT 0 Hrs 14 Mins; KETONE, URINE NEGATIVE (NEG); LEUKOCYTE ESTERASE(NOT OR MOD (NEG); NITRITE (URINE) NEG (NEG); WBC (NOT ORDERED) (RFLEX) 70 (0-5)
[2016-08-12 18:57] LABS: A/G RATIO 0.9 (0.7-1.9); ALBUMIN 3.6 G/DL (3.5-5.0); ALKALINE PHOSPHATASE 86 U/L (45-117); BUN (BLOOD UREA NITROGEN) 19 MG/DL (6-23); CALCIUM, SERUM 9.4 MG/DL (8.5-10.4); CHLORIDE, SERUM 105 MMOL/L (96-112); CO2 (CARBON DIOXIDE) 34 MMOL/L (24-34); CREATININE 0.91 MG/DL (0.55-1.02); GFR AFRICAN AMERICAN 71 ML/MIN (>=60); GFR NON AFRICAN AMERICAN 61 ML/MIN (>=60); GLOBULIN 4.2 G/DL (2.5-4.1); GLUCOSE, SERUM 116 MG/DL (60-99); POTASSIUM, SERUM 3.3 MMOL/L (3.5-5.3); SGOT(AST) 11 U/L (5-40); SGPT(ALT) 9 U/L (5-65); SODIUM, SERUM 139 MMOL/L (135-148); TOTAL BILIRUBIN 0.6 MG/DL (0-1.2); TOTAL PROTEIN 7.8 G/DL (6.0-8.5)
== END 2016-08-13 02:15 | disposition home or self-care (01) ==
LOC: ER 22:01
PROVIDERS: Emergency Medicine
DX: M54.10 Radiculopathy, site unspecified (principal); K21.9 Gastro-esophageal reflux disease without esophagitis; D64.9 Anemia, unspecified; I10 Essential (primary) hypertension; G47.30 Sleep apnea, unspecified; F32.9 Major depressive disorder, single episode, unspecified; Z91.018 Allergy to other foods; Z79.82 Long term (current) use of aspirin; Z79.899 Other long term (current) drug therapy; Z90.710 Acquired absence of both cervix and uterus; Z90.49 Acquired absence of other specified parts of digestive tract
CPT/HCPCS: 74176; 80053; 81001; 83690; 85025; 87077; 87086; 87186; 96372; 96374; 99284; J1040; J1170; J2405